=== PATIENT | female | born 1960 | race Caucasian/White ===

== ENCOUNTER 2020-01-01 19:06 | Inpatient (IN) | payer MEDICAID ==
[~2020-01-01] VITALS: Ht 165.1 cm; Wt 83.9 kg
--- NOTE | ~2020-01-01 | EMS ---
[place] [address] EMS Patient Care Report Name: ALKA SCOTT Room: [address]#: [id number] Admission: 01/01/20 Attend Phys: Carina Mercado MD Discharge: 01/06/20 Date of : 56 Report #: [id number] THIS REPORT FOR: //name// Report Transmitted: 01/08/2020 11:57 EMS Care Summary [facility] [id number] @ 01/01/2020 18:01 Incident Location [address] Patient ALKA SCOTT Female, 59 Years 1960 Patient Address [address] [facility] [place] [address] Patient History Chronic Obstructive Pulmonary Disease (COPD),Hypertension (HTN),Stroke/CVA,Hyperlipidemia,End Stage Renal Disease (ESRD),Alcohol Abuse, Patient Allergies Codeine,Morphine, Patient Medications Bisacodyl, Lorazepam, Loperamide, Lasix, Aspirin, Omeprazole, Gabapentin, Lisinopril, Acetaminophen, Hydralazine, Divalproex Sodium, Tizanidine, Tramadol, Zofran, Chief Complaint COVID positive Disposition Transported No Lights/[place] Dispatch Reason Sick Person Transported To [facility] Narrative Dispatched to [place] for 59 y/o female that is COVID positive, hallucinations, altered mental status. Per report pt has had symptoms for a [facility] [address] [place] [address] EMS Patient Care Report Name: ALKA SCOTT Room: [address] [place] .#: [id number] Admission: 01/01/20 Attend Phys: Carina Mercado MD Discharge: 01/06/20 Date of : 56 Report #: [id number] week, tested daily, just came back positive today. Pt is altered mental status, not acting at all like herself, pt is responsible for herself normally, but today pt only knows her name and only at times knows where she is, pt keeps saying ouch, but ask her about pain or where she hurts she says no pain. Pt will not leave anything on, won't leave her mask on, pulls off pulse ox, pulls away from you if you try to put B/P cuff on or try to look for IV access and tucks her hands under her. Pt lungs sound clear and temp 97.4. Pt is moved from her bed to cot with sheet lift. TX: assessed, pulse ox, vitals, monitor, temp and transport. En route: pt is very uncooperative, keeps pulling things off, keeps saying ow, like she's in pain, but ask her repeatedly where she hurts or where her pain is and she keeps saying no pain. Report via cell phone nurse present ER Initial Vitals @18:24P: 89,SpO2: 100, @18:43P: 76,R: 18,BP: 117/62,SpO2: 100, @18:52P: 82,R: 20,BP: 119/76,SpO2: 99, @18:20P: 89,R: 20,BP: 143/66,GCS: 15,Temp: 97.4F,SpO2: 99,Revised Trauma: 12, @18:33P: 82,R: 20,BP: 104/50,SpO2: 99, Assessments @18:15MENTAL:Confused,Hallucinations,Person Oriented,SKIN:HEENT:Head/Face: No Abnormalities,Neck/Airway: No Abnormalities,LUNG SOUNDS:ABDOMEN:PELVIS//GI:EXTREMITIES:Left Arm: Weakness,Left Leg: Weakness,PULSE:Radial: 2+ Normal,NEURO: Impression COVID-19 - Confirmed by testing Timeline 18:01,Call Received 18:01,Dispatched 18:01,Psap Call 18:04,En Route 18:09,On Scene 18:11,At Patient 18:20,BP: 143/66 M,PULSE: 89,RR: 20 R,SPO2: 99 Ox,ETCO2: ,BG: ,PAIN: ,GCS: 15, 18:24,BP: / M,PULSE: 89,RR: R,SPO2: 100 Ox,ETCO2: ,BG: ,PAIN: ,GCS: , 18:27,Depart Scene 18:33,BP: 104/50 M,PULSE: 82,RR: 20 R,SPO2: 99 Ox,ETCO2: ,BG: ,PAIN: ,GCS: , 18:43,BP: 117/62 M,PULSE: 76,RR: 18 R,SPO2: 100 Ox,ETCO2: ,BG: ,PAIN: ,GCS: , 18:52,BP: 119/76 M,PULSE: 82,RR: 20 R,SPO2: 99 Ox,ETCO2: ,BG: ,PAIN: ,GCS: , 19:01,At Destination 19:03,Transfer Patient 19:45,Call Closed [facility] [address] [place] [address] EMS Patient Care Report Name: ALKA SCOTT Room: [address] [place] [facility]#: [id number] Admission: 01/01/20 Attend Phys: Carina Mercado MD Discharge: 01/06/20 Date of : 56 Report #: [id number] 19:45,In District Disclaimer v1.1 Copyright 2020 [employer] This EMS Care Summary contains data elements from the applicable legal record (which may be displayed differently). It is designed to provide pertinent information for the following purposes: continuity of care, clinical quality, and state data reporting. The complete legal record is available to ED staff and administrators of the receiving hospital in [facility]'s Patient Tracker. All data is provided "as is."
[~2020-01-01 19:06] MED LIST: NOHOMEMEDICATIONS; VALIUM5 MG PO; ZOFRAN ODT4 MG PO
[2020-01-01 19:08] VITALS: BP 112/65
[2020-01-01] MEDS ORDERED: CHILDREN'S ASPI81 MG PO (19:20)
[2020-01-01] MEDS ORDERED: TYLENOL325 MG PO (19:20)
[2020-01-01] MEDS ORDERED: LAXATIVE5 M1 RECTAL (19:21)
[2020-01-01] MEDS ORDERED: DEPAKOTE 250MG250 M1 PO (19:21)
[2020-01-01] MEDS ORDERED: ATORVASTATIN CA20 MG PO (19:21)
[2020-01-01] MEDS ORDERED: ANTI-DIARRHEAL2 MG PO (19:22)
[2020-01-01] MEDS ORDERED: GABAPENTIN600 M1 PO (19:22)
[2020-01-01] MEDS ORDERED: HYDRALAZINE 10M10 MG PO (19:22)
[2020-01-01] MEDS ORDERED: LASIX 40 MG TAB40 MG PO (19:22)
[2020-01-01] MEDS ORDERED: MAGNESIUM250 M1 PO (19:23)
[2020-01-01] MEDS ORDERED: ATIVAN0.5 M1 PO (19:23)
[2020-01-01] MEDS ORDERED: OMEPRAZOLE40 MG PO (19:23)
[2020-01-01] MEDS ORDERED: VITAMIN B-6100 MG PO (19:23)
[2020-01-01] MEDS ORDERED: TIZANIDINE HCL 22 M1 PO (19:24)
[2020-01-01] MEDS ORDERED: SENNA PLUS TAB1 EACH PO (19:24)
[2020-01-01] MEDS ORDERED: ULTRAM 50MG TAB50 MG PO (19:25)
[2020-01-01] MEDS ORDERED: TOPAMAX100 MG PO (19:25)
[2020-01-01 20:10] LABS: ABSOLUTE LYMPHOCYTES 1.2 thou/uL (0.8-5.3); ABSOLUTE MONOCYTES 0.4 thou/uL (0.0-1.2); ABSOLUTE NEUTROPHILS 3.1 thou/uL (1.6-8.1); BASOPHILS 0.7 %; HEMATOCRIT 36.5 % (37.0-47.0); HEMOGLOBIN 12.4 gm/dL (12.0-15.0); MCH 30.7 pg (26.0-34.0); MCHC 33.9 g/dL (28.0-37.0); MCV 90.7 fL (80.0-100.0); MONOCYTES 7.5 %; MPV 9.8 fl. (7.2-11.1); NUCLEATED RBCS 0 /100WBC; PLATELET COUNT* 142 thou/uL (150-400); POLYS 65.8 %; RBC 4.03 mil/uL (4.20-5.00); RDW-CV 13.6 % (10.5-14.5); WBC 4.8 thou/uL (4.0-11.0)
[2020-01-01 20:24] LABS: PROTIME 10.6 Seconds (9.20-11.50)
[2020-01-01 20:41] LABS: URINE CLARITY CLOUDY; URINE COLOR AMBER
[2020-01-01 20:42] LABS: URINE WBC-REFLEX >25 Many /HPF (0-5)
[2020-01-01 20:43] LABS: BACTERIA-REFLEX >30 Many /HPF (None Seen); CASTS None Seen /LPF (None Seen); CRYSTALS None Seen /LPF (None Seen); URINE RBC 0-2 Rare /HPF (0-2)
[2020-01-01 20:44] LABS: SQUAMOUS 4-10 Moderate /LPF (0-3)
[2020-01-01 21:16] LABS: BE -5.5 mmol/L (-2 to +3); PCO2 25.8 mmHg (35.0-45.0); PO2 69.8 mmHg (75.0-100.0); pH 7.442 (7.340-7.450)
[2020-01-01 22:35] LABS: CALCIUM 7.8 mg/dL (8.5-10.1); CREATININE 1.7 mg/dL (0.6-1.3); POTASSIUM 4.2 mmol/L (3.5-5.1)
[2020-01-01 22:46] LABS: ALBUMIN 3.1 g/dL (3.4-5.0); MAGNESIUM 2.2 mg/dL (1.8-2.4); TOTAL BILIRUBIN 0.4 mg/dL (<0.1-1.0); TOTAL PROTEIN 6.7 g/dL (6.4-8.2)
[2020-01-02] VITALS (7 sets, daily range): BP systolic 108–147; BP diastolic 27–74
[2020-01-02] MEDS ORDERED: DIVALPROEX SOD500 M1 PO (01:58)
[2020-01-02] MEDS ORDERED: ARTIFICIAL TEAR15 M4 OPHTHALMIC (02:06)
[2020-01-02] MEDS ORDERED: LISINOPRIL2.5 MG PO (02:07)
[2020-01-02] MEDS ORDERED: THERA-M TABLET1 EACH PO (02:08)
[2020-01-02] MEDS ORDERED: ONDANSETRON HCL4 M2 PO (02:09)
[2020-01-03] VITALS: BP 154/80
[2020-01-03 04:00] VITALS: BP 144/60
[2020-01-03 05:22] LABS: HEMATOCRIT 33.8 % (37.0-47.0); HEMOGLOBIN 11.3 gm/dL (12.0-15.0); MCH 30.3 pg (26.0-34.0); MCHC 33.5 g/dL (28.0-37.0); MCV 90.4 fL (80.0-100.0); RBC 3.74 mil/uL (4.20-5.00); RDW-CV 13.3 % (10.5-14.5); WBC 6.9 thou/uL (4.0-11.0)
[2020-01-03 05:43] LABS: ALBUMIN 2.8 g/dL (3.4-5.0); CALCIUM 7.8 mg/dL (8.5-10.1); CREATININE 1.1 mg/dL (0.6-1.3); POTASSIUM 3.5 mmol/L (3.5-5.1); TOTAL BILIRUBIN 0.2 mg/dL (<0.1-1.0); TOTAL PROTEIN 6.3 g/dL (6.4-8.2)
[2020-01-03 06:16] LABS: INFLUENZA A ANTIGEN Negative (Negative); INFLUENZA B ANTIGEN Negative (Negative)
[2020-01-03 12:30] VITALS: BP 130/62
[2020-01-03 20:00] VITALS: BP 140/69
[2020-01-04] VITALS: BP 141/76
[2020-01-04 04:38] VITALS: BP 146/75
[2020-01-04 07:40] VITALS: BP 152/71
--- NOTE | 2020-01-04 12:14 | EKG ---
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
[2020-01-04 13:59] LABS: ALBUMIN 2.8 g/dL (3.4-5.0); CALCIUM 8.2 mg/dL (8.5-10.1); CREATININE 1.1 mg/dL (0.6-1.3); TOTAL BILIRUBIN 0.5 mg/dL (<0.1-1.0); TOTAL PROTEIN 6.2 g/dL (6.4-8.2)
[2020-01-04 14:11] LABS: POTASSIUM 2.9 mmol/L (3.5-5.1)
[2020-01-04 17:04] VITALS: BP 155/78
[2020-01-04 20:00] VITALS: BP 165/84
[2020-01-05] VITALS (7 sets, daily range): BP systolic 105–182; BP diastolic 62–104
[2020-01-06 04:00] VITALS: BP 130/67
[2020-01-06 07:15] LABS: HEMATOCRIT 31.6 % (37.0-47.0); HEMOGLOBIN 10.7 gm/dL (12.0-15.0); MCH 30.2 pg (26.0-34.0); MCHC 33.8 g/dL (28.0-37.0); MCV 89.2 fL (80.0-100.0); MPV 7.4 fl. (7.2-11.1); RBC 3.54 mil/uL (4.20-5.00); RDW-CV 12.7 % (10.5-14.5); WBC 8.8 thou/uL (4.0-11.0)
[2020-01-06 07:34] LABS: ALBUMIN 2.5 g/dL (3.4-5.0); CREATININE 0.9 mg/dL (0.6-1.3); MAGNESIUM 2.3 mg/dL (1.8-2.4); TOTAL BILIRUBIN 0.5 mg/dL (<0.1-1.0); TOTAL PROTEIN 5.7 g/dL (6.4-8.2)
[2020-01-06 07:39] LABS: POTASSIUM 2.8 mmol/L (3.5-5.1)
[2020-01-06 08:00] VITALS: BP 155/80
[2020-01-06] MEDS ORDERED: COLESTID1 GM PO (11:16)
[2020-01-06] MEDS ORDERED: CEFDINIR300 MG PO (11:39)
[2020-01-06] MEDS ORDERED: K-TAB10 MEQ PO (11:43)
[2020-01-06 12:00] VITALS: BP 162/85
== END 2020-01-06 16:15 | DRG 177 ==
LOC: M.ERS → M.TBA-ER 23:14 → M.ORTHSURG 01-02 00:26 → M.2W 01-06 07:32
PROVIDERS: Emergency Medicine; Internal Medicine; ADMIT Internal Medicine; ATTEND Internal Medicine
DX: U07.1 COVID-19 (principal); N18.6 End stage renal disease; N17.0 Acute kidney failure with tubular necrosis; J12.89 Other viral pneumonia; N30.00 Acute cystitis without hematuria; I12.0 Hypertensive chronic kidney disease with stage 5 chronic kidney disease or end stage renal disease; E78.5 Hyperlipidemia, unspecified; F32.9 Major depressive disorder, single episode, unspecified; K21.9 Gastro-esophageal reflux disease without esophagitis; E03.9 Hypothyroidism, unspecified; F41.9 Anxiety disorder, unspecified; Z88.6 Allergy status to analgesic agent; Z82.49 Family history of ischemic heart disease and other diseases of the circulatory system; Z59.8 Other problems related to housing and economic circumstances; Z87.11 Personal history of peptic ulcer disease